=== PATIENT | male | born 1955 | race Caucasian/White ===

== ENCOUNTER 2018-08-25 10:01 | Inpatient (IN) | payer BC, OTHER ==
[~2018-08-25] VITALS: Ht 172.7 cm; Wt 127.0 kg
--- NOTE | ~2018-08-25 | EKG ---
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: IVONE : 1955 Requested By: Kellie Dial Order Number: [id number] MD: Malcolm Luna Measurements Intervals [place] Rate: 60 P: 40 RI: 178 QRS: -1 QRSD: 101 T: 33 QT: 459 QTc: 459 Interpretive Statements Sinus rhythm Nonspecific ST segment abnormality Compared to ECG 01/08/2010 14:29:29 No significant change was found Electronically Signed On 08-26-2018 8:37:21 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
[~2018-08-25 10:01] MED LIST: PRILOSEC 20 MG20 MG PO
[2018-08-25 10:02] VITALS: BP 133/74
[2018-08-25] MEDS ORDERED: TOPROL XL100 MG PO (10:07)
[2018-08-25] MEDS ORDERED: COZAAR 25 MG TA25 M1 PO (10:07)
[2018-08-25 10:34] LABS: ABSOLUTE NEUTROPHILS 8.2 thou/uL (1.4-8.2); BASOPHILS 0.9 % (0.0-2.0); EOSINOPHILS 2.7 % (0.0-3.0); HEMATOCRIT 47.4 % (42.0-52.0); HEMOGLOBIN 16.2 gm/dL (14.0-18.0); LYMPHOCYTES 14.4 % (24.0-44.0); MCH 30.8 pg (26.0-34.0); MCHC 34.2 g/dL (28.0-37.0); MCV 90.1 fL (80.0-100.0); MONOCYTES 6.5 % (1.0-8.0); PLATELET COUNT 215 thou/uL (150-400); POLYS 75.5 % (36.0-66.0); RBC 5.27 mil/uL (4.50-6.00); WBC 10.8 thou/uL (4.0-11.0)
[2018-08-25 10:45] LABS: ANION GAP 7 mmol/L (7-16); BUN 20 mg/dL (7-18); CALCIUM 9.5 mg/dL (8.5-10.1); CHLORIDE 99 mmol/L (98-107); CO2 29 mmol/L (21-32); CREATININE 1.2 mg/dL (0.7-1.3); GLUCOSE 154 mg/dL (74-106); POTASSIUM 3.2 mmol/L (3.5-5.1); SODIUM 135 mmol/L (136-145)
[2018-08-25 10:54] LABS: ALBUMIN 3.7 g/dL (3.4-5.0); LIPASE 79 U/L (73-393); SGOT 19 U/L (15-37); SGPT 26 U/L (30-65); TOTAL BILIRUBIN 0.3 mg/dL (<0.1-1.0); TOTAL PROTEIN 7.9 g/dL (6.4-8.2); TROPONIN-I <0.06 ng/mL (<0.06)
[2018-08-25 14:19] VITALS: BP 132/72
[2018-08-25 14:55] VITALS: BP 143/75
[2018-08-25 15:07] VITALS: BP 139/81
[2018-08-25 19:59] VITALS: BP 145/76
[2018-08-25 23:21] VITALS: BP 152/77
[2018-08-26 03:40] VITALS: BP 120/61
[2018-08-26 06:00] LABS: CALCIUM 8.7 mg/dL (8.5-10.1); CREATININE 1.1 mg/dL (0.7-1.3)
[2018-08-26 08:26] VITALS: BP 153/79
[2018-08-26] MEDS ORDERED: ANTIVERT25 MG PO (09:10)
[2018-08-26 11:47] VITALS: BP 153/79
== END 2018-08-26 13:15 | disposition home or self-care (01) | DRG 149 ==
LOC: ER 10:01 → EROBS 13:54 → 3W 13:54
PROVIDERS: Hospitalist; Physician Assistant
DX: H81.10 Benign paroxysmal vertigo, unspecified ear (principal); I10 Essential (primary) hypertension; Z85.810 Personal history of malignant neoplasm of tongue; Z79.899 Other long term (current) drug therapy; Z23 Encounter for immunization
CPT/HCPCS: 10879